=== PATIENT | male | born 1950 | race Caucasian/White ===

== ENCOUNTER 2018-03-01 19:30 | Observation (INO) | payer MEDICARE, BC, SELFPAY ==
[2018-03-01 19:31] VITALS: PULSE 126; RESP 18; TEMP 36.7; O2SAT 96; BMI 21.4
--- NOTE | 2018-03-01 19:53 | EKG12_ITS ---
Test Reason : ABD PAIN Blood Pressure : / mmHG Vent. Rate : 119 BPM Atrial Rate : 119 BPM P-R Int : 136 ms QRS Dur : 068 ms QT Int : 314 ms P-R-T Axes : 071 115 062 degrees QTc Int : 441 ms Sinus tachycardia with occasional Premature ventricular complexes Right axis deviation Low voltage QRS Septal infarct , age undetermined Abnormal ECG Confirmed by THAIS PEREZ ([id number]), editorial project manager AMELIE JULIAN ([id number]) on 03/04/2018 1:00:38 PM Referred By: KOSTAS Confirmed By:THAIS PEREZ
--- NOTE | 2018-03-01 19:53 | CT_ITS ---
STUDY: CT ABDOMEN AND PELVIS WITH CONTRAST REASON FOR EXAM: Male, 67 years old. Abdominal pain RADIATION DOSAGE (If Supplied By Facility): CTDIvol = ( 13.03 ) mGy, DLP = ( 499.37 ) mGycm TECHNIQUE: Transaxial images were obtained from the dome of the diaphragm to the symphysis pubis without oral contrast. 100ML ml of Isovue 300 contrast was administered. Sagittal and coronal images were reconstructed. Individualized dose optimization techniques were used for this CT. COMPARISON: None. FINDINGS: There are subcentimeter nodular densities within the right lung base. Pericardial effusion. There is retrocrural adenopathy. Enlarged liver with innumerable hepatic lesions compatible with metastasis. Mild wall thickening of the gallbladder with pericholecystic fluid. No significant dilatation of extrahepatic biliary system. Granulomatous calcifications in the spleen. There is a 1.6 cm in nodule posterior to the spleen. Normal pancreas. Normal bilateral adrenal glands. Normal right kidney. Normal left kidney. Normal visualized stomach. Normal small intestine. Normal colon. The appendix is not visualized. Normal abdominal aorta. Normal inferior vena cava. Normal retroperitoneum. Normal urinary bladder. There is mild pelvic free fluid. Normal abdominal wall. Mild degenerative vertebral changes. CT/Abdomen/Pelvis WITH Contrast IMPRESSION: There are small subcentimeter right pulmonary nodular densities. Pericardial effusion. Hepatomegaly with innumerable metastatic hepatic lesions. Mild pelvic free fluid. Retrocrural adenopathy. Nodule posterior to the spleen may be related to additional enlarged node. Electronically Signed: Sid Oneil DO at 22:31 EST Tel [phone], Service support ,
[2018-03-01 19:58] VITALS: BP 122/88; PULSE 120; RESP 16; O2SAT 96
[2018-03-01] MEDS: Morphine 4 MG/ML Syringe IV (20:25)
[2018-03-01] MEDS: 0.9% Normal Saline 1,000 ML 150 ML IV (20:25)
[2018-03-01] MEDS: Ondansetron 4 MG/2 ML Vial IV (20:25)
[2018-03-01 20:39] LABS: Absolute Lymphocyte Count 0.65 X10^3/ul (0.83-4.51); Absolute Neutrophil Count 6.3 X10^3/uL (2.0-7.7); Basophil# 0.03 X10^3/uL; Basophil% 0.4 % (0-1); Eosinophil# 0.02 X10^3/uL; Eosinophils% 0.3 % (0-5); Hematocrit 43.8 % (40-54); Hemoglobin 14.9 g/dl (13.0-16.5); Lymphocyte # 0.65 X10^3/ul (4.0); Lymphocyte % 8.4 % (19-41); Mean Corpuscular Hgb 32.7 pg (27.0-32.0); Mean Corpuscular Volume 96.3 fL (80-94); Mean Platelet Vol. 11.5 fl (6.2-12.0); Monocyte# 0.76 X10^3/uL; Monocyte% 9.8 % (0-10); Neutrophil # 6.27 X10^3/uL (2.7-7.7); Neutrophil % 80.8 % (47-70); Platelet Count 303 K/mm3 (150-450); RBC Distribution Width CV 15.8 % (11.6-14.6); RBC Distribution Width SD 54.5 fl (35.1-43.9); Red Blood Count 4.55 M/mm3 (4.6-6.2); White Blood Count 7.8 K/mm3 (4.4-11.0)
[2018-03-01 20:41] LABS: POSITIVE COUNT NO; POSITIVE DIFFERENTIAL NO; POSITIVE MORPHOLOGY NO
--- NOTE | 2018-03-01 20:43 | RAD_ITS ---
STUDY: X-RAY CHEST REASON FOR EXAM: Male, 67 years old. Cough TECHNIQUE: Frontal views COMPARISON: None. FINDINGS: The lungs are expanded. There is a faint right pulmonary 1.6 cm nodular opacity. Possible right perihilar and right basilar infiltrates. Normal size heart. Normal mediastinum. There is right hilar prominence. Normal visualized pulmonary arteries. Normal visualized aortic arch and descending thoracic aorta. Normal visualized thoracic spine. Mild degenerative changes of the shoulders. There is no demonstrated abnormality of the visualized soft tissue structures of the upper abdomen. RAD/Chest 1 View (Portable) IMPRESSION: Right upper lung nodular density and right hilar prominence. Correlation with CT is recommended. Focal right perihilar and infrahilar infiltrates. Electronically Signed: Sid Oneil DO at 21:26 EST Tel [phone], Service support ,
[2018-03-01 20:53] LABS: AST(SGOT) 90 U/L (15-37); Alanine Aminotransfer ALT/SGPT 72 U/L (16-61); Albumin, Serum 3.1 g/dL (3.2-5.0); Alkaline Phosphatase 315 U/L (45-117); Anion Gap 12 (5-15); BUN 18 mg/dL (7-18); BUN/Creat Ratio 18.3 RATIO (10-20); Bilirubin, Direct 2.58 mg/dL (0.00-0.30); Calcium,Total 9.2 mg/dL (8.5-10.1); Chloride 102 mmol/L (98-107); Creatinine, Serum 0.99 mg/dL (0.70-1.30); EST Glomerular Filtration Rate 81 mL/min (>60); Est Glom Filt Rate - Afr Amer 98 mL/min (>60); Estimated Creatinine Clearance 77.34 ml/min; Globulin 4.3 g/dL (2.2-4.2); Glucose 97 mg/dL (74-106); Lipase 452 U/L (73-393); Potassium 3.9 mmol/L (3.5-5.1); Protein, Total 7.4 g/dL (6.4-8.2); Sodium Level 136 mmol/L (136-145)
--- NOTE | 2018-03-01 20:53 | ED.DCSUM_ITS ---
- ER Visit Summary Date of Service: 03/01/18 Chief Complaint: Abdominal pain History of Present Illness: The patient is a 67 M reports intermittent bronchitis symptoms of fever over the past 3 weeks. He states he coughed hard and noted a bulge in his upper abdomen approximately 3 weeks ago. His daughter visited him tonight and encouraged him to come to the emergency room. He does report having some vomiting this morning. Physical Examination: Heart rate is 126, otherwise vitals normal. Patient sitting upright in bed. He is in no acute distress. Heart tachycardic and regular. Lung sounds are clear. Abdomen is soft with firmness in the upper abdomen and what feels like an enl arged liver. Active bowel sounds are noted. Test Results: Portable chest x-ray shows right upper lobe nodule and right hilar prominence. Focal right perihilar and infrahilar infiltrates noted. EKG is sinus tach at 119 with occasional PVCs. No acute ST change. CBC reveals normal white count but left shift is noted. Chemistry studies reveal creatinine 1.52. LFTs significant for total bili of 3.3, direct bili 2.58, alk phos 315. ALT is 72 and AST is 90. Lipase is 452. Lactate is elevated at 3.4. CT scan of the abdomen and pelvis shows small subcentimeter right pulmonary nodular densities. Pericardial effusion is noted. Hepatomegaly with innumerable metastatic hepatic lesions are noted. Mild pelvic free fluid is noted. Mild gallbladder wall thickening with pericholecystic fluid is appreciated. Right upper quadrant ultrasound shows no evidence of gallstones. Gallbladder sanchez measuring 3 mm. Pericholecystic fluid is noted. There is a negative sonographic Yang sign. Emergency Department Course and Treatment: Patient was given morphine Zofran and fluids. Upon return of x-ray, Levaquin is ordered IV. Blood cultures have been added. Test results are discussed with , daughter, and patient at bedside. I have expressed to him that I do believe he has cancer with metastatic lesions to his liver. At this time I think his best course of action is admission for treatment of his pneumonia and attempts to clear his lactic acidosis. We are currently heading into a weekend with holiday dates on Sunday and Sunday. I do not feel that anyone will be eager to get biopsies done until at least Sunday. This would be the same treatment if he is kept here versus transfer to a larger facility. Hospitalist has been contacted. Treatment Plan: [] Disposition: Admit Impression: 1. Right lower lobe infiltrate 2. Lung nodules with liver metastases 3. Elevated lactate 4. Elevated LFTs This note was generated with [employer] dictation software. It may contain incorrect words, spelling, and punctuation that were not noted in review of the chart prior to signing ED Disposition - Plan for ED Patient: Chief Complaint: Abd Pain Referrals: Care Physician,No Primary [Primary Care Provider] -
[2018-03-01 21:12] LABS: Lactic Acid 3.4 mmol/L (0.4-2.0)
--- NOTE | 2018-03-01 21:12 | ED.RN ---
LACTIC ACID OF 3.[address]KLINE[address] GALO VERBALIZED UNDERSTANDING
[2018-03-01] MEDS: levoFLOXacin IV 750 MG/150 ML BAG 100 MG IV (21:51)
[2018-03-01 22:00] VITALS: BP 127/89; PULSE 121; RESP 16; TEMP 36.7; O2SAT 97
[2018-03-01 22:02] VITALS: BP 127/89; PULSE 110; RESP 18; TEMP 36.7; O2SAT 94
--- NOTE | 2018-03-01 22:53 | US_ITS ---
STUDY: ABDOMINAL ULTRASOUND - RIGHT UPPER QUADRANT REASON FOR VISIT: Male, 67 years old. Right upper quadrant pain TECHNIQUE: Ultrasound evaluation of the right upper quadrant was performed with real-time and static hebert-scale imaging. TECHNICAL QUALITY: Adequate. COMPARISON: None. FINDINGS: Liver: The liver measures 21 cm. Multiple hypoechoic lesions are seen in the liver are consistent with metastatic lesions the largest measures approximately 4 cm. The bile ducts are within normal limits. There is hepatic color flow. The direction of portal flow is hepatopetal. There is no demonstrated mass lesion. Gallbladder: Normal distended gallbladder. The gallbladder wall measures 3 mm. There is a negative sonographic Yang's sign. There is pericholecystic fluid. There are no gallstones. Common Bile Duct (C.B.D.): The common bile duct measures 2 mm. Pancreas: Normal size of the head, body and tail of the pancreas. There is normal echogenicity of the pancreas. There is no demonstrated pancreatic mass or cyst. Right Kidney: Normal size of the right kidney. The right kidney measures 11.5 x 5 x 4 cm. Normal renal cortex. The right cortex measures 1.2 cm. There is no demonstrated renal mass or cyst. There is no right hydronephrosis. US/Gallbladder IMPRESSION: Multiple metastatic lesions in the liver Electronically Signed: Janee Srivastava MD at 23:59 EST Tel , Service support ,
[2018-03-01] MEDS: 0.9% Normal Saline 1,000 ML 999 ML IV ×2 (22:55→23:00)
[2018-03-02] VITALS (11 sets, daily range): BP systolic 129–146; BP diastolic 82–97; PULSE 101–115; RESP 16–24; TEMP 36.6–36.9; O2SAT 94–96; BMI 21.4; BMI 21.5
--- NOTE | 2018-03-02 00:23 | HP.PCM_ITS ---
History of Present Illness Date of Admission: 03/02/18 Chief Complaint: right abdominal pain The patient is a 67 year old M with no significant PMH. He was admitted with a complaint of right upper abdominal pain for the past few days. He has been coughing for the past month, and thought it was due to bronchitis. Whilst coughing, he noticed a bulge in his right upper abdomen, which he thought may be a hernia. He however had persistent right upper abdominal pain in the bulging and so his and daughter convinced him to come to the hospital today. He did not have any fever or chills that his cough was productive of scanty yellowish sputum. had noticed yellowing of his eyes and said he just noti emigdio it today and his urine has been more concentrated than usual. He denied any chest pain, any palpitations, any diarrhea vomiting. Patient has an extensive history of smoking is to smoke about three quarters of a pack daily for his entire life according to him and only quit 3 weeks ago because of the chronic cough. He is also lost about 15-20 pounds unintentionally over the past month. Vitals in the ED showed tachypnea and tachycardia. CBC showed no leukocytosis or anemia and CMP showed lactic acid of 3.4 with total bilirubin of 3.3, direct bilirubin of 2.58 and elevated AST, ALT and ALP. Lipase was 452. CT of the abdomen and pelvis showed enlarged liver with innumerable hepatic lesions consistent with metastasis as well as mild wall thickening of the gallbladder with pericholecystic fluid and a 1.6 cm nodule posterior to the spleen. There are also subcentimeter nodular densities within the right lung base as well as pericardial effusion and a retrocrural adenopathy. Chest x-ray showed right upper lung nodular density and right hilar prominence and focal right perihilar and infrahilar infiltrates. He is been admitted to be managed for newly diagnosed malignancy with liver metastasis with primary likely pain in the lung. Past Medical History Allergies Penicillins [PCN] Adverse Reaction (Verified 03/01/18 19:33) Other Home Medications: Ambulatory Orders Medication Instructions Recorded NK 03/01/18 Surgical History: - - hand surgery Psychiatric History: No pertinent psych hx Lives: With Family Smoking Status: Former smoker - quit 3 weeks ago; smoked 3/4 pack daily for majority of his life Tobacco Use: Cigarettes Alcohol: None Drugs: None - *Family History Maternal History Items: Cancer, Heart Disease, Hypertension Paternal History Items: No pertinent history Review of Systems Constitutional: Reports: Anorexia, Malaise, Weakness, Weight Change - lost 15-20 pounds, Fatigue. Denies: Chills, Fever HEENT: Reports: Difficulty Hearing Cardiovascular: Denies: Chest Pain, Chest Pressure, Chest Tightness, Light Headedness, Orthopnea, Palpitations, Paroxysmal Noc. Dyspnea, Syncope Respiratory: Reports: Cough, Sputum production. Denies: Pleuritic Pain, Shortness of Breath, Shortness of breath at rest, Shortness of breath upon exertion, Wheezing Gastrointestinal: Reports: Abdominal Pain. Denies: Constipation, Diarrhea, Dyspepsia, Hematemesis, Hematochezia, Nausea, Vomiting Genitourinary: Denies: Dysuria Musculoskeletal: Denies: Joint Pain, Joint Tenderness Skin: Denies: Rash, Wounds Neurological: Denies: Numbness, Tingling, Focal weakness Psychiatric: Denies: Anxiety, Depression, Homicidal Ideations, Suicidal Ideations Hematologic/ Lymphatic: Denies: Easy Bruising, Easy Bleeding VTE Information - Inpt Only VTE Present on Admission: No VTE Pharm Prophylaxis ordered?: Yes - Physical Exam General: Alert, Oriented x3, Cooperative, No apparent distress, - - looks emaciated HEENT: Atraumatic, PERRLA, EOMI, Normocephalic, - - jaundiced sclera Oral: Dry Mucosa Neck: Supple, No JVD, Negative Carotid Bruits Lungs: Tachypneic, - - decreased breath sounds in right mid and lower lung mosquera, with coarse crackles auscultated Cardiovascular: Regular Rhythm, Normal S1, Normal S2, No murmurs, Tachycardic Abdomen: Bowel Sounds Present, Soft, - - right hypochondrial tenderness, with guarding. Palpable tender hepatomegaly, with liver edge ~ 10cm below costal margin. No palpable splenomegaly Extremities: No clubbing, No cyanosis, No edema, Capillary Refill Less than 3 Seconds Skin: No rashes, No breakdown Musculoskeletal: No Tenderness to Palpation of Joints or Extremities Lymphatic: No Cervical, Supraclavicular, or Inguinal Adenopathy Neurological: Cranial nerves II-XII grossly intact Psych/Mental Status: Anxious, Alert and oriented to time, place, person, mood and affect Vital Signs Temp Pulse Resp BP Pulse Ox 98.2 F 101 H 24 H 129/92 H 96 03/02/18 00:05 03/02/18 00:05 03/02/18 00:05 03/02/18 00:05 03/02/18 00:05 Oxygen Delivery Method Room Air Weight: 162 lb 0.636 oz Body Mass Index (BMI) 21.4 Laboratory Tests Past 24 Hrs 03/01/18 03/01/18 03/01/18 20:30 20:30 20:30 WBC 7.8 RBC 4.55 L Hgb 14.9 Hct 43.8 MCV 96.3 H MCH 32.7 H MCHC 34.0 RDW 15.8 H RDW Differential 54.5 H Plt Count 303 MPV 11.5 Immature Gran % (Auto) 0.300 Neut % (Auto) 80.8 H Lymph % (Auto) 8.4 L Harnett % (Auto) 9.8 Eos % (Auto) 0.3 Baso % (Auto) 0.4 Absolute Neuts (auto) 6.3 Absolute Lymphs (auto) 0.65 L Total Counted Not Reportable Sodium 136 Potassium 3.9 Chloride 102 Carbon Dioxide 22.0 Anion Gap 12 BUN 18 Creatinine 0.99 Estim Creat Clear Calc 77.34 Est GFR (MDRD) Af Amer 98 Est GFR (MDRD) Non-Af 81 BUN/Creatinine Ratio 18.3 Glucose 97 Lactic Acid 3.4 H Calcium 9.2 Total Bilirubin 3.30 H Direct Bilirubin 2.58 H AST 90 H ALT 72 H Alkaline Phosphatase 315 H Total Protein 7.4 Albumin 3.1 L Globulin 4.3 H Lipase 452 H Diagnostic Data Abdomen/Pelvis CT 03/01/18 19:53 IMPRESSION: There are small subcentimeter right pulmonary nodular densities. Pericardial effusion. Hepatomegaly with innumerable metastatic hepatic lesions. Mild pelvic free fluid. Retrocrural adenopathy. Nodule posterior to the spleen may be related to additional enlarged node. Electronically Signed: Sid Oneil DO at 22:31 EST Tel [phone], Service support , Chest X-Ray 03/01/18 20:43 IMPRESSION: Right upper lung nodular density and right hilar prominence. Correlation with CT is recommended. Focal right perihilar and infrahilar infiltrates. Electronically Signed: Sid Oneil DO at 21:26 EST Tel [phone], Service support , Gallbladder Ultrasound 03/01/18 22:53 IMPRESSION: Multiple metastatic lesions in the liver Electronically Signed: Janee Srivastava MD at 23:59 EST Tel , Service support , Assessment/Plan [age]-year-old male presenting with a complaint of right upper quadrant pain and bulging of a few days and a cough of one-month duration. 1. Malignancy with hepatic metastases, primary likely lung * has associated jaundice and palpable tender hepatomegaly * total bilirubin elevated at 3.3, with direct bilirubin of 2.58; AST/ALT/ALT is 90/72/315 * lactic acid elevated at 3.4 * abdominopelvic CT showed enlarged liver with numerous metastatic lesions * CXR; right upper lung nodular density and right hilar prominence, as well as focal ribght peihilar and infrahilar infiltrates * admit to to PCU with telemetry * hydrate with IV normal saline at 150cc/hr * order chest CT: showed multiple pleural nodules in in lower part of right hemithorax, likely metastatic lesions; right hilar mass measyring ~ 5.5cm in diameter, consistent with neoplastic process * consult pulmonology and oncology * patient and family counselled about diagnosis, and need for official diagnosis via biopsy before treatment can commence * will hold off on antibiotics for now as I am not convinced he has pneumonia. All his symptoms can be explained by malignancy. * 2. Lactic acidosis: * Lactic acid is 3.4. * This can be due to liver lesions or decreased intake as patient is very dry and has not been eating well. * Will hydrate with IV fluids and repeat. * 3. Nicotine dependence: quit 3 weeks ago o/a of chronic cough. Counselled to continue abstaining from nicotine DVT prophylaxis: lovenox Code Visit Inpatient E&M: 95239 Init Hosp L3
--- NOTE | 2018-03-02 00:23 | CT_ITS ---
STUDY: CT CHEST WITHOUT CONTRAST REASON FOR EXAM: Male, 67 years old. Lung nodule RADIATION DOSAGE (If Supplied By Facility): CTDIvol = ( 9.37 ) mGy, DLP = ( 358.36 ) mGycm TECHNIQUE: Transaxial imaging was performed without the administration of intravenous contrast material. Individualized dose optimization techniques were used for this CT. COMPARISON: None. FINDINGS: There is hyperinflation of the lungs consistent with chronic obstructive lung disease (COPD). Subpleural reticular interstitial opacities are seen in both lungs more prominent in lung bases suggesting chronic interstitial lung disease. Mild emphysema is noted in the upper lobes. Multiple pleural nodules are seen in the lower part of the right hemithorax most likely represent metastatic lesions the largest measures approximately 2.8 x 1.2 cm. Normal heart and pericardium. Normal mediastinum. There is right hilar mass measures approximately 5.5 cm in diameter consistent with a neoplastic process. Normal unenhanced pulmonary arteries. There is atherosclerotic calcification of the aortic arch with tortuosity and elongation of the aortic arch and descending thoracic aorta. There are multi-level degenerative changes of the thoracic spine. Innumerable metastatic lesions are seen in the liver largest measures approximately [address]/Chest without Contrast IMPRESSION: Multiple pleural nodules are seen in the lower part of the right hemithorax most likely represent metastatic lesions the largest measures approximately 2.8 x 1.2 cm. There is right hilar mass measures approximately 5.5 cm in diameter consistent with a neoplastic process. Innumerable metastatic lesions are seen in the liver, the largest measures approximately 8 cm in diameter. Electronically Signed: Janee Srivastava MD at 1:59 EST Tel , Service support ,
[2018-03-02 00:33] LABS: Reflex Lactate? Y
[2018-03-02 02:56] LABS: Lactic Acid 2.1 mmol/L (0.4-2.0)
[2018-03-02 05:48] LABS: Absolute Lymphocyte Count 0.54 X10^3/ul (0.83-4.51); Absolute Neutrophil Count 5.5 X10^3/uL (2.0-7.7); Basophil# 0.02 X10^3/uL; Basophil% 0.3 % (0-1); Differential Indicated SCAN CRITERIA MET; Eosinophil# 0.08 X10^3/uL; Eosinophils% 1.2 % (0-5); Hematocrit 38.9 % (40-54); Hemoglobin 13.1 g/dl (13.0-16.5); Lymphocyte # 0.54 X10^3/ul (4.0); Lymphocyte % 7.8 % (19-41); Mean Corp Hgb Conc 33.7 g/gl (32-36); Mean Corpuscular Hgb 32.6 pg (27.0-32.0); Mean Corpuscular Volume 96.8 fL (80-94); Mean Platelet Vol. 11.3 fl (6.2-12.0); Monocyte# 0.73 X10^3/uL; Monocyte% 10.6 % (0-10); Neutrophil # 5.49 X10^3/uL (2.7-7.7); Neutrophil % 79.8 % (47-70); POSITIVE COUNT NO; POSITIVE DIFFERENTIAL YES; POSITIVE MORPHOLOGY NO; Platelet Count 249 K/mm3 (150-450); RBC Distribution Width CV 15.7 % (11.6-14.6); RBC Distribution Width SD 53.9 fl (35.1-43.9); Red Blood Count 4.02 M/mm3 (4.6-6.2); White Blood Count 6.9 K/mm3 (4.4-11.0)
[2018-03-02 06:11] LABS: ALB/GLOB Ratio 0.7 RATIO (0.9-2.4); AST(SGOT) 74 U/L (15-37); Alanine Aminotransfer ALT/SGPT 61 U/L (16-61); Albumin, Serum 2.6 g/dL (3.2-5.0); Alkaline Phosphatase 259 U/L (45-117); Anion Gap 10 (5-15); BUN 15 mg/dL (7-18); BUN/Creat Ratio 17.4 RATIO (10-20); Calcium,Total 8.4 mg/dL (8.5-10.1); Chloride 105 mmol/L (98-107); Creatinine, Serum 0.86 mg/dL (0.70-1.30); EST Glomerular Filtration Rate 94 mL/min (>60); Est Glom Filt Rate - Afr Amer 114 mL/min (>60); Estimated Creatinine Clearance 86.97 ml/min; Globulin 3.6 g/dL (2.2-4.2); Glucose 81 mg/dL (74-106); Potassium 4.1 mmol/L (3.5-5.1); Protein, Total 6.2 g/dL (6.4-8.2); Sodium Level 138 mmol/L (136-145)
[2018-03-02 06:13] LABS: Lactic Acid 1.9 mmol/L (0.4-2.0)
--- NOTE | 2018-03-02 06:15 | PCM.CONS.GEN ---
Reason for Consult Date of Consultation: 03/02/18 Reason for Consultation: Lung cancer with liver metastases History of Present Illness: The patient is a 67-year-old male, with a history as outlined below, who presented to the emergency department on March 01 with complaints of a cough with sputum production along with abdominal pain. The patient has a long-standing tobacco dependence history, which includes 1 pack/day x 40 years. The patient reports that he recently quit smoking completely 1 month ago. Since that time, he has been experiencing a cough which has been intermittently productive of sputum. With coughing, he began to notice a bulge in his abdomen which concerned him. However, he strongly suspected that he had a hernia. In addition to the aforementioned, the patient reports that over the last month his appetite has decreased significantly and he has lost approximately 15 pounds. The patient has never previously been evaluated by a pulmonary provider, nor has he undergone pulmonary function testing previously. He does not currently utilize any inhalers at his baseline. He denies the presence of hemoptysis. On presentation to the emergency department, the patient was noted to be afebrile and hemodynamically stable. He was maintaining appropriate oxygen saturations on room air. Laboratory evaluation revealed no evidence of a leukocytosis. Chemistry profile was largely unremarkable. Serum lactate was mildly elevated to 3.4. Total bilirubin was increased to 3.3 with an elevated AST, ALT and alkaline phosphatase level. Lipase was increased to 452. A CT abdomen/pelvis was obtained and revealed an enlarged liver with numerous hepatic lesions concerning for metastatic disease. A follow-up gallbladder ultrasound confirmed these findings. A CT chest without contrast was also obtained and revealed hyperinflated lung mosquera, significant emphysematous changes bilaterally, several pleural based densities bilaterally (most pronounced in the right hemithorax), bilateral lower lobe subpleural reticular changes and groundglass changes concerning for fibrosis along with a right perihilar mass. The patient did receive supplemental IV fluids in the ED along with Levaquin. He was subsequently admitted to the progressive care unit for ongoing management. Past Medical History Allergies Penicillins [PCN] Adverse Reaction (Verified 03/01/18 19:33) Other Home Medications: Ambulatory Orders Medication Instructions Recorded NK 03/01/18 Surgical History: - - hand surgery Psychiatric History: No pertinent psych hx Lives: With Family Smoking Status: Former smoker Tobacco Use: Cigarettes Alcohol: None Drugs: None - *Family History Maternal History Items: Cancer, Heart Disease, Hypertension Paternal History Items: No pertinent history Review of Systems Constitutional: Reports: Weight Change, Fatigue Eyes: Denies: Blurred vision, Double vision HEENT: Denies: Head Aches, Sinus Congestion, Sinus Drainage Cardiovascular: Denies: Chest Pain, Palpitations Respiratory: Reports: Cough, Sputum production. Denies: Hemoptysis Gastrointestinal: Reports: Abdominal Pain. Denies: Diarrhea, Nausea, Vomiting Genitourinary: Denies: Dysuria Musculoskeletal: Denies: Joint Pain, Joint Tenderness Skin: Denies: Rash, Wounds Neurological: Denies: Numbness, Tingling, Focal weakness Psychiatric: Denies: Anxiety, Depression, Homicidal Ideations, Suicidal Ideations Hematologic/ Lymphatic: Denies: Easy Bruising, Easy Bleeding Objective: The patient's most recent lab work, culture data and imaging studies have all been personally reviewed. - Physical Exam General: Alert, Cooperative, No apparent distress HEENT: Atraumatic, PERRLA, Normocephalic Oral: No Gingival or Mucosal Lesions/ Ulcerations Neck: Supple, No Nodes, Trachea Midline Lungs: No rhonchi, No wheeze, Diminished, Rales Cardiovascular: Normal S1, Normal S2, No murmurs, Tachycardic Abdomen: Bowel Sounds Present, Soft, Non Tender Extremities: No clubbing, No cyanosis, No edema Skin: No breakdown Musculoskeletal: No Tenderness to Palpation of Joints or Extremities, Cachexia, Muscle Wasting Lymphatic: No Cervical, Supraclavicular, or Inguinal Adenopathy Neurological: Cranial nerves II-XII grossly intact, Neuro grossly intact Psych/Mental Status: Alert and oriented to time, place, person, mood and affect Vital Signs Temp Pulse Resp BP Pulse Ox 36.8 C 109 H 18 131/83 H 94 03/02/18 06:05 03/02/18 06:05 03/02/18 06:05 03/02/18 06:05 03/02/18 06:05 Oxygen Delivery Method Room Air Weight: 158 lb 4.67 oz Body Mass Index (BMI) 21.4 Intake and Output for Last 24 Hours 02/28/18 03/01/18 03/02/18 23:59 23:59 23:59 Intake Total 583 / 583 Balance 583 / 583 Laboratory Tests Past 24 Hrs 1203/01/18 03/01/18 20:30 20:30 20:30 WBC 7.8 RBC 4.55 L Hgb 14.9 Hct 43.8 MCV 96.3 H MCH 32.7 H MCHC 34.0 RDW 15.8 H RDW Differential 54.5 H Plt Count 303 MPV 11.5 Immature Gran % (Auto) 0.300 Neut % (Auto) 80.8 H Lymph % (Auto) 8.4 L [place] % (Auto) 9.8 Eos % (Auto) 0.3 Baso % (Auto) 0.4 Absolute Neuts (auto) 6.3 Absolute Lymphs (auto) 0.65 L Total Counted Not Reportable Sodium 136 Potassium 3.9 Chloride 102 Carbon Dioxide 22.0 Anion Gap 12 BUN 18 Creatinine 0.99 Estim Creat Clear Calc 77.34 Est GFR (MDRD) Af Amer 98 Est GFR (MDRD) Non-Af 81 BUN/Creatinine Ratio 18.3 Glucose 97 Lactic Acid 3.4 H Calcium 9.2 Total Bilirubin 3.30 H Direct Bilirubin 2.58 H AST 90 H ALT 72 H Alkaline Phosphatase 315 H Total Protein 7.4 Albumin 3.1 L Globulin 4.3 H Albumin/Globulin Ratio Lipase 452 H 03/02/18 03/02/18 03/02/18 02:25 05:23 05:23 WBC 6.9 RBC 4.02 L Hgb 13.1 Hct 38.9 L MCV 96.8 H MCH 32.6 H MCHC 33.7 RDW 15.7 H RDW Differential 53.9 H Plt Count 249 MPV 11.3 Immature Gran % (Auto) 0.300 Neut % (Auto) 79.8 H Lymph % (Auto) 7.8 L [place] % (Auto) 10.6 H Eos % (Auto) 1.2 Baso % (Auto) 0.3 Absolute Neuts (auto) 5.5 Absolute Lymphs (auto) 0.54 L Total Counted Not Reportable Sodium 138 Potassium 4.1 Chloride 105 Carbon Dioxide 23.0 Anion Gap 10 BUN 15 Creatinine 0.86 Estim Creat Clear Calc 86.97 Est GFR (MDRD) Af Amer 114 Est GFR (MDRD) Non-Af 94 BUN/Creatinine Ratio 17.4 Glucose 81 Lactic Acid 2.1 H Calcium 8.4 L Total Bilirubin 3.20 H Direct Bilirubin AST 74 H ALT 61 Alkaline Phosphatase 259 H Total Protein 6.2 L Albumin 2.6 L Globulin 3.6 Albumin/Globulin Ratio 0.7 L Lipase 03/02/18 05:23 WBC RBC Hgb Hct MCV MCH MCHC RDW RDW Differential Plt Count MPV Immature Gran % (Auto) Neut % (Auto) Lymph % (Auto) [place] % (Auto) Eos % (Auto) Baso % (Auto) Absolute Neuts (auto) Absolute Lymphs (auto) Total Counted Sodium Potassium Chloride Carbon Dioxide Anion Gap BUN Creatinine Estim Creat Clear Calc Est GFR (MDRD) Af Amer Est GFR (MDRD) Non-Af BUN/Creatinine Ratio Glucose Lactic Acid 1.9 Calcium Total Bilirubin Direct Bilirubin AST ALT Alkaline Phosphatase Total Protein Albumin Globulin Albumin/Globulin Ratio Lipase Clinical Impression(s) from Imaging Studies Abdomen/Pelvis CT 03/01/18 19:53 IMPRESSION: There are small subcentimeter right pulmonary nodular densities. Pericardial effusion. Hepatomegaly with innumerable metastatic hepatic lesions. Mild pelvic free fluid. Retrocrural adenopathy. Nodule posterior to the spleen may be related to additional enlarged node. Electronically Signed: Sid Oneil DO at 22:31 EST Tel [phone], Service support , Chest X-Ray 03/01/18 20:43 IMPRESSION: Right upper lung nodular density and right hilar prominence. Correlation with CT is recommended. Focal right perihilar and infrahilar infiltrates. Electronically Signed: Sid Oneil DO at 21:26 EST Tel [phone], Service support , Gallbladder Ultrasound 03/01/18 22:53 IMPRESSION: Multiple metastatic lesions in the liver Electronically Signed: Janee Srivastava MD at 23:59 EST Tel , Service support , Chest CT 03/02/18 00:23 IMPRESSION: Multiple pleural nodules are seen in the lower part of the right hemithorax most likely represent metastatic lesions the largest measures approximately 2.8 x 1.2 cm. There is right hilar mass measures approximately 5.5 cm in diameter consistent with a neoplastic process. Innumerable metastatic lesions are seen in the liver, the largest measures approximately 8 cm in diameter. Electronically Signed: Janee Srivastava MD at 1:59 EST Tel , Service support , Assessment/Plan RECOMMENDATIONS: 1. Proceed with direct histopathologic confirmation of the patient's suspicious findings. We will need to confer with radiology and oncology about the most appropriate target for biopsy. Considerations include liver biopsy, right hilar mass/mediastinal sampling by EBUS and percutaneous CT-guided lung biopsy of the subpleural densities. Regardless, these procedures would need to be arranged on an outpatient basis. The patient can be scheduled for a follow-up office visit in the pulmonary medicine clinic next week, at which time, we can coordinate the timing of one of the aforementioned procedures. IMPRESSIONS: 1. Abnormal chest imaging The patient's presenting chest CT revealed findings consistent with the sequelae of long-term tobacco dependence, including emphysematous changes and interstitial changes noted in the lower lobes bilaterally. In addition, the patient was noted to have multiple pleural-based densities, most pronounced in the right hemithorax along with a sizable right perihilar mass. Given the patient's extensive smoking history and unintentional weight loss, this of course would be concerning for an underlying neoplastic process. I would recommend pursuing histopathologic confirmation of potential malignancy by direct tissue biopsy. Depending on the size of the liver lesions, the patient may be a candidate for a hepatic biopsy. Alternatively, direct tissue biopsy of the patient's right hilar mass by EBUS or percutaneous CT-guided lung biopsy of the pleural-based nodules could be considered. I recommended to the patient pursuing the biopsy procedure that would offer not only a tissue diagnosis but a stage as well. I would first consider obtaining a liver biopsy, if feasible followed by right hilar mass/mediastinal lymph node sampling by EBUS. These procedures would need to be coordinated and scheduled on an outpatient basis. I recommended that the patient call our office on Sunday, at which time, he will be given an office appointment for next week. At that appointment, will confer with radiology as to the appropriateness of a liver biopsy. If this is not feasible, he will be scheduled for an EBUS. The patient was given our contact information. 2. Long-standing tobacco dependence The patient has a [id number] smoking history and recently quit smoking 1 month ago. I do suspect that the patient's cough is likely chronic bronchitis, which is likely worsened in the setting of recently quitting smoking. The patient does not have a white count or fever and my suspicion for underlying pulmonary infectious process is low. I would recommend that the patient undergo formal pulmonary function testing. This can be arranged at his follow-up visit with us in the pulmonary medicine clinic. 3. Elevated transaminases Most likely secondary to potential underlying metastatic disease. This note was generated with [employer] dictation software. It may contain incorrect words, spelling, and punctuation that were not noted in checking the note before signing. Code Visit Inpatient E&M: 85032 Init Hosp L3
--- NOTE | 2018-03-02 06:23 | CON.PCM_ITS ---
Reason for Consult Date of Consultation: 03/02/18 Reason for Consultation: Lung cancer with liver metastases History of Present Illness: The patient is a 67-year-old male, with a history as outlined below, who presented to the emergency department on March 01 with complaints of a cough with sputum production along with abdominal pain. The patient has a long- standing tobacco dependence history, which includes 1 pack/day x 40 years. The patient reports that he recently quit smoking completely 1 month ago. Since that time, he has been experiencing a cough which has been intermittently productive of sputum. With coughing, he began to notice a bulge in his abdomen which concerned him. However, he strongly suspected that he had a hernia. In addition to the aforementioned, the patient reports that over the last month his appetite has decreased significantly and he has lost approximately 15 pounds. The patient has never previously been evaluated by a pulmonary provider, nor has he undergone pulmonary function testing previously. He does not currently utilize any inhalers at his baseline. He denies the presence of hemoptysis. On presentation to the emergency department, the patient was noted to be afebrile and hemodynamically stable. He was maintaining appropriate oxygen saturations on room air. Laboratory evaluation revealed no evidence of a leukocytosis. Chemistry profile was largely unremarkable. Serum lactate was mildly elevated to 3.4. Total bilirubin was increased to 3.3 with an elevated AST, ALT and alkaline phosphatase level. Lipase was increased to 452. A CT abdomen/pelvis was obtained and revealed an enlarged liver with numerous hepatic lesions concerning for metastatic disease. A follow-up gallbladder ultrasound confirmed these findings. A CT chest without contrast was also obtained and revealed hyperinflated lung mosquera, significant emphysematous changes bilaterally, several pleural based densities bilaterally (most pronounced in the right hemithorax), bilateral lower lobe subpleural reticular changes and groundglass changes concerning for fibrosis along with a right perihilar mass. The patient did receive supplemental IV fluids in the ED along with Levaquin. He was subsequently admitted to the progressive care unit for ongoing management. Past Medical History Allergies Penicillins [PCN] Adverse Reaction (Verified 03/01/18 19:33) Other Home Medications: Ambulatory Orders Medication Instructions Recorded NK 03/01/18 Surgical History: - - hand surgery Psychiatric History: No pertinent psych hx Lives: With Family Smoking Status: Former smoker Tobacco Use: Cigarettes Alcohol: None Drugs: None - *Family History Maternal History Items: Cancer, Heart Disease, Hypertension Paternal History Items: No pertinent history Review of Systems Constitutional: Reports: Weight Change, Fatigue Eyes: Denies: Blurred vision, Double vision HEENT: Denies: Head Aches, Sinus Congestion, Sinus Drainage Cardiovascular: Denies: Chest Pain, Palpitations Respiratory: Reports: Cough, Sputum production. Denies: Hemoptysis Gastrointestinal: Reports: Abdominal Pain. Denies: Diarrhea, Nausea, Vomiting Genitourinary: Denies: Dysuria Musculoskeletal: Denies: Joint Pain, Joint Tenderness Skin: Denies: Rash, Wounds Neurological: Denies: Numbness, Tingling, Focal weakness Psychiatric: Denies: Anxiety, Depression, Homicidal Ideations, Suicidal Ideations Hematologic/ Lymphatic: Denies: Easy Bruising, Easy Bleeding Objective: The patient's most recent lab work, culture data and imaging studies have all been personally reviewed. - Physical Exam General: Alert, Cooperative, No apparent distress HEENT: Atraumatic, PERRLA, Normocephalic Oral: No Gingival or Mucosal Lesions/ Ulcerations Neck: Supple, No Nodes, Trachea Midline Lungs: No rhonchi, No wheeze, Diminished, Rales Cardiovascular: Normal S1, Normal S2, No murmurs, Tachycardic Abdomen: Bowel Sounds Present, Soft, Non Tender Extremities: No clubbing, No cyanosis, No edema Skin: No breakdown Musculoskeletal: No Tenderness to Palpation of Joints or Extremities, Cachexia, Muscle Wasting Lymphatic: No Cervical, Supraclavicular, or Inguinal Adenopathy Neurological: Cranial nerves II-XII grossly intact, Neuro grossly intact Psych/Mental Status: Alert and oriented to time, place, person, mood and affect Vital Signs Temp Pulse Resp BP Pulse Ox 36.8 C 109 H 18 131/83 H 94 03/02/18 06:05 03/02/18 06:05 03/02/18 06:05 03/02/18 06:05 03/02/18 06:05 Oxygen Delivery Method Room Air Weight: 158 lb 4.67 oz Body Mass Index (BMI) 21.4 Intake and Output for Last 24 Hours 02/28/18 03/01/18 03/02/18 23:59 23:59 23:59 Intake Total 583 / 583 Balance 583 / 583 Laboratory Tests Past 24 Hrs 1203/01/18 03/01/18 20:30 20:30 20:30 WBC 7.8 RBC 4.55 L Hgb 14.9 Hct 43.8 MCV 96.3 H MCH 32.7 H MCHC 34.0 RDW 15.8 H RDW Differential 54.5 H Plt Count 303 MPV 11.5 Immature Gran % (Auto) 0.300 Neut % (Auto) 80.8 H Lymph % (Auto) 8.4 L [place] % (Auto) 9.8 Eos % (Auto) 0.3 Baso % (Auto) 0.4 Absolute Neuts (auto) 6.3 Absolute Lymphs (auto) 0.65 L Total Counted Not Reportable Sodium 136 Potassium 3.9 Chloride 102 Carbon Dioxide 22.0 Anion Gap 12 BUN 18 Creatinine 0.99 Estim Creat Clear Calc 77.34 Est GFR (MDRD) Af Amer 98 Est GFR (MDRD) Non-Af 81 BUN/Creatinine Ratio 18.3 Glucose 97 Lactic Acid 3.4 H Calcium 9.2 Total Bilirubin 3.30 H Direct Bilirubin 2.58 H AST 90 H ALT 72 H Alkaline Phosphatase 315 H Total Protein 7.4 Albumin 3.1 L Globulin 4.3 H Albumin/Globulin Ratio Lipase 452 H 03/02/18 03/02/18 03/02/18 02:25 05:23 05:23 WBC 6.9 RBC 4.02 L Hgb 13.1 Hct 38.9 L MCV 96.8 H MCH 32.6 H MCHC 33.7 RDW 15.7 H RDW Differential 53.9 H Plt Count 249 MPV 11.3 Immature Gran % (Auto) 0.300 Neut % (Auto) 79.8 H Lymph % (Auto) 7.8 L [place] % (Auto) 10.6 H Eos % (Auto) 1.2 Baso % (Auto) 0.3 Absolute Neuts (auto) 5.5 Absolute Lymphs (auto) 0.54 L Total Counted Not Reportable Sodium 138 Potassium 4.1 Chloride 105 Carbon Dioxide 23.0 Anion Gap 10 BUN 15 Creatinine 0.86 Estim Creat Clear Calc 86.97 Est GFR (MDRD) Af Amer 114 Est GFR (MDRD) Non-Af 94 BUN/Creatinine Ratio 17.4 Glucose 81 Lactic Acid 2.1 H Calcium 8.4 L Total Bilirubin 3.20 H Direct Bilirubin AST 74 H ALT 61 Alkaline Phosphatase 259 H Total Protein 6.2 L Albumin 2.6 L Globulin 3.6 Albumin/Globulin Ratio 0.7 L Lipase 03/02/18 05:23 WBC RBC Hgb Hct MCV MCH MCHC RDW RDW Differential Plt Count MPV Immature Gran % (Auto) Neut % (Auto) Lymph % (Auto) [place] % (Auto) Eos % (Auto) Baso % (Auto) Absolute Neuts (auto) Absolute Lymphs (auto) Total Counted Sodium Potassium Chloride Carbon Dioxide Anion Gap BUN Creatinine Estim Creat Clear Calc Est GFR (MDRD) Af Amer Est GFR (MDRD) Non-Af BUN/Creatinine Ratio Glucose Lactic Acid 1.9 Calcium Total Bilirubin Direct Bilirubin AST ALT Alkaline Phosphatase Total Protein Albumin Globulin Albumin/Globulin Ratio Lipase Clinical Impression(s) from Imaging Studies Abdomen/Pelvis CT 03/01/18 19:53 IMPRESSION: There are small subcentimeter right pulmonary nodular densities. Pericardial effusion. Hepatomegaly with innumerable metastatic hepatic lesions. Mild pelvic free fluid. Retrocrural adenopathy. Nodule posterior to the spleen may be related to additional enlarged node. Electronically Signed: Sid Oneil DO at 22:31 EST Tel [phone], Service support , Chest X-Ray 03/01/18 20:43 IMPRESSION: Right upper lung nodular density and right hilar prominence. Correlation with CT is recommended. Focal right perihilar and infrahilar infiltrates. Electronically Signed: Sid Oneil DO at 21:26 EST Tel [phone], Service support , Gallbladder Ultrasound 03/01/18 22:53 IMPRESSION: Multiple metastatic lesions in the liver Electronically Signed: Janee Srivastava MD at 23:59 EST Tel , Service support , Chest CT 03/02/18 00:23 IMPRESSION: Multiple pleural nodules are seen in the lower part of the right hemithorax most likely represent metastatic lesions the largest measures approximately 2.8 x 1.2 cm. There is right hilar mass measures approximately 5.5 cm in diameter consistent with a neoplastic process. Innumerable metastatic lesions are seen in the liver, the largest measures approximately 8 cm in diameter. Electronically Signed: Janee Srivastava MD at 1:59 EST Tel , Service support , Assessment/Plan RECOMMENDATIONS: 1. Proceed with direct histopathologic confirmation of the patient's suspicious findings. We will need to confer with radiology and oncology about the most appropriate target for biopsy. Considerations include liver biopsy, right hilar mass/mediastinal sampling by EBUS and percutaneous CT-guided lung biopsy of the subpleural densities. Regardless, these procedures would need to be arranged on an outpatient basis. The patient can be scheduled for a follow-up office visit in the pulmonary medicine clinic next week, at which time, we can c oordinate the timing of one of the aforementioned procedures. IMPRESSIONS: 1. Abnormal chest imaging The patient's presenting chest CT revealed findings consistent with the sequelae of long-term tobacco dependence, including emphysematous changes and interstitial changes noted in the lower lobes bilaterally. In addition, the patient was noted to have multiple pleural-based densities, most pronounced in the right hemithorax along with a sizable right perihilar mass. Given the patient's extensive smoking history and unintentional weight loss, this of course would be concerning for an underlying neoplastic process. I would recommend pursuing histopathologic confirmation of potential malignancy by direct tissue biopsy. Depending on the size of the liver lesions, the patient may be a candidate for a hepatic biopsy. Alternatively, direct tissue biopsy of the patient's right hilar mass by EBUS or percutaneous CT-guided lung biopsy of the pleural-based nodules could be considered. I recommended to the patient pursuing the biopsy procedure that would offer not only a tissue diagnosis but a stage as well. I would first consider obtaining a liver biopsy, if feasible followed by right hilar mass/mediastinal lymph node sampling by EBUS. These procedures would need to be coordinated and scheduled on an outpatient basis. I recommended that the patient call our office on Sunday, at which time, he will be given an office appointment for next week. At that appointment, will confer with radiology as to the appropriateness of a liver biopsy. If this is not feasible, he will be scheduled for an EBUS. The patient was given our contact information. 2. Long-standing tobacco dependence The patient has a [id number] smoking history and recently quit smoking 1 month ago. I do suspect that the patient's cough is likely chronic bronchitis, which is likely worsened in the setting of recently quitting smoking. The patient does not have a white count or fever and my suspicion for underlying pulmonary infectious process is low. I would recommend that the patient undergo formal pulmonary function testing. This can be arranged at his follow-up visit with us in the pulmonary medicine clinic. 3. Elevated transaminases Most likely secondary to potential underlying metastatic disease. This note was generated with [employer] dictation software. It may contain incorrect words, spelling, and punctuation that were not noted in checking the note before signing. Code Visit Inpatient E&M: 30757 Init Hosp L3
[2018-03-02] MEDS: 0.9% Normal Saline 1,000 ML 150 ML IV (08:13)
--- NOTE | 2018-03-02 08:52 | CON.PCM_ITS ---
Problem List (1) Lung mass Status: Acute (2) Mass of middle lobe of right lung Status: Acute (3) Liver masses Status: Acute - Consult Date of Consult: 03/02/18 - Reason for Consult HPI: The patient is a 67-year-old male who has an unremarkable past medical history, but received no routine primary care. He has a [id number] history of smoking. He presented to the emergency room last night at the urging of his family for several month history of progressive dyspnea, weight loss and right upper quadrant bulging. On presentation to the ER he was not in respiratory distress. Room air oxygenation's were normal. He was afebrile. Laboratories were significant for an increase in bilirubin as well as hepatocellular enzymes and alkaline phosphatase. CBC was unremarkable. CT A/P 03/01/2018: FINDINGS: There are subcentimeter nodular densities within the right lung base. Pericardial effusion. There is retrocrural adenopathy. Enlarged liver with innumerable hepatic lesions compatible with metastasis. Mild wall thickening of the gallbladder with pericholecystic fluid. No significant dilatation of extrahepatic biliary system. Granulomatous calcifications in the spleen. There is a 1.6 cm in nodule posterior to the spleen. Normal pancreas. Normal bilateral adrenal glands. Normal right kidney. Normal left kidney. Normal visualized stomach. Normal small intestine. Normal colon. The appendix is not visualized. Normal abdominal aorta. Normal inferior vena cava. Normal retroperitoneum. Normal urinary bladder. There is mild pelvic free fluid. Normal abdominal wall. Mild degenerative vertebral changes. IMPRESSION: There are small subcentimeter right pulmonary nodular densities. Pericardial effusion. Hepatomegaly with innumerable metastatic hepatic lesions. Mild pelvic free fluid. Retrocrural adenopathy. Nodule posterior to the spleen may be related to additional enlarged node. CT chest 03/01/2018: FINDINGS: There is hyperinflation of the lungs consistent with chronic obstructive lung disease (COPD). Subpleural reticular interstitial opacities are seen in both lungs more prominent in lung bases suggesting chronic interstitial lung disease. Mild emphysema is noted in the upper lobes. Multiple pleural nodules are seen in the lower part of the right hemithorax most likely represent metastatic lesions the largest measures approximately 2.8 x 1.2 cm. Normal heart and pericardium. Normal mediastinum. There is right hilar mass measures approximately 5.5 cm in diameter consistent with a neoplastic process. Normal unenhanced pulmonary arteries. There is atherosclerotic calcification of the aortic arch with tortuosity and elongation of the aortic arch and descending thoracic aorta. There are multi-level degenerative changes of the thoracic spine. Innumerable metastatic lesions are seen in the liver largest measures approximately 8 cm in diameter. IMPRESSION: Multiple pleural nodules are seen in the lower part of the right hemithorax most likely represent metastatic lesions the largest measures approximately 2.8 x 1.2 cm. There is right hilar mass measures approximately 5.5 cm in diameter consistent with a neoplastic process. Innumerable metastatic lesions are seen in the liver, the largest measures approximately 8 cm in diameter. Patient was admitted for further management. He says that over the last several months he has noticed some increase of dyspnea on exertion. For example went out hunting and hiking he notices that he gets a little more short winded with walking. He is also had some increase in cough and sputum production over the last several months but this really escalated in December when he had an episode of bronchitis. He was having significant paroxysms of coughing during 1 of those he coughed hard enough that he said he saw stars and noticed instantly some pain and bulging in his upper a bdomen. He thought this was a hernia. Over the ensuing weeks however he continued to have upper abdominal discomfort associated with loss of taste for foods and early satiety. He has had about a 30 pound weight loss. He denies wheezing and hemoptysis. He denies headache, visual changes, changes in coordination and focal motor symptoms. No symptoms of sensory neuropathy. Allergies Penicillins [PCN] Adverse Reaction (Verified 03/01/18 19:33) Other Current Medications Enoxaparin Sodium (Lovenox) 40 mg SC DAILY@1000 JEF Last Admin: 03/02/18 08:15 Dose: Not Given Sodium Chloride () 1,000 mls @ 150 mls/hr IV .[id number] [facility] Last Admin: 03/02/18 08:13 Dose: 150 mls/hr Magnesium Hydroxide (Milk Of Magnesia) 30 ml PO DAILY PRN PRN PRN Reason: Constipation Nutritional Formula (Lactose Free) (Ensure Enlive) 120 ml PO 4X/DAY [facility] Sodium Chloride () 5 - 15 ml IV UD PRN PRN Reason: SALINE FLUSH Problem List Lung mass (Acute) Mass of middle lobe of right lung (Acute) Liver masses (Acute) SOC: Quit smoking about a month ago. Previous 40-[id number]-[id number] history of smoking. He lives with his in [place]. 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 ROS: Constitutional: Denies episodes of fever and night sweats. Neuro: See above. HEENT: Had symptoms of URI last week that resolved. Resp: See above. CVS: Denies exertional chest pain, PND, orthopnea. Denies lower extremity edema. GI: Denies reflux, n/v, and change in bowel habits. No melena or hematochezia. : Denies dysuria, frequency and gross hematuria. Endo: Denies hot flashes. Heat and cold intolerance. Musculoskeletal: Denies bone, back, joint and muscular pain. Heme: Denies episodes of significant bleeding. Psych: Mood has been normal. PHYSICAL EXAM: Vitals: Vital Signs Temp 98.3 F 03/02/18 06:05 Pulse 110 H 03/02/18 07:00 Resp 18 03/02/18 06:05 BP 131/83 H 03/02/18 06:05 Pulse Ox 94 03/02/18 07:49 Intake & Output 02/28/18 03/01/18 03/02/18 23:59 23:59 23:59 Intake Total 583 / 583 Balance 583 / 583 Weight: 73.5 kg 71.8 kg Intake: IV fluid/meds 583 / 583 Other: Number of Voids 1 GENERAL: No acute distress. NECK: Supple. LYMPHATIC: No palpable peripheral adenopathy. RESPIRATORY: Inspiratory breath sounds are of diminished intensity in all mosquera--worse right upper lung field. Faint expiratory wheeze right lower lung field. CARDIOVASCULAR: Rhythm is regular. Normal intensity S1/S2. ABDOMEN: Tender hepatomegaly. Extremities: No edema. SKIN: No jaundice or rash. NEUROLOGIC: AAO x3; No focal motor weakness. MUSCULOSKELETAL: Mild generalized muscle wasting. Laboratory Results - last 24 hr 03/01/18 03/01/18 03/01/18 20:30 20:30 20:30 WBC 7.8 RBC 4.55 L Hgb 14.9 Hct 43.8 MCV 96.3 H MCH 32.7 H MCHC 34.0 RDW 15.8 H RDW Differential 54.5 H Plt Count 303 MPV 11.5 Immature Gran % (Auto) 0.300 Neut % (Auto) 80.8 H Lymph % (Auto) 8.4 L [place] % (Auto) 9.8 Eos % (Auto) 0.3 Baso % (Auto) 0.4 Absolute Neuts (auto) 6.3 Absolute Lymphs (auto) 0.65 L Total Counted Not Reportable Sodium 136 Potassium 3.9 Chloride 102 Carbon Dioxide 22.0 Anion Gap 12 BUN 18 Creatinine 0.99 Estim Creat Clear Calc 77.34 Est GFR (MDRD) Af Amer 98 Est GFR (MDRD) Non-Af 81 BUN/Creatinine Ratio 18.3 Glucose 97 Lactic Acid 3.4 H Calcium 9.2 Total Bilirubin 3.30 H Direct Bilirubin 2.58 H AST 90 H ALT 72 H Alkaline Phosphatase 315 H Total Protein 7.4 Albumin 3.1 L Globulin 4.3 H Albumin/Globulin Ratio Lipase 452 H 03/02/18 03/02/18 03/02/18 02:25 05:23 05:23 WBC 6.9 RBC 4.02 L Hgb 13.1 Hct 38.9 L MCV 96.8 H MCH 32.6 H MCHC 33.7 RDW 15.7 H RDW Differential 53.9 H Plt Count 249 MPV 11.3 Immature Gran % (Auto) 0.300 Neut % (Auto) 79.8 H Lymph % (Auto) 7.8 L [place] % (Auto) 10.6 H Eos % (Auto) 1.2 Baso % (Auto) 0.3 Absolute Neuts (auto) 5.5 Absolute Lymphs (auto) 0.54 L Total Counted Not Reportable Sodium 138 Potassium 4.1 Chloride 105 Carbon Dioxide 23.0 Anion Gap 10 BUN 15 Creatinine 0.86 Estim Creat Clear Calc 86.97 Est GFR (MDRD) Af Amer 114 Est GFR (MDRD) Non-Af 94 BUN/Creatinine Ratio 17.4 Glucose 81 Lactic Acid 2.1 H Calcium 8.4 L Total Bilirubin 3.20 H Direct Bilirubin AST 74 H ALT 61 Alkaline Phosphatase 259 H Total Protein 6.2 L Albumin 2.6 L Globulin 3.6 Albumin/Globulin Ratio 0.7 L Lipase 03/02/18 05:23 WBC RBC Hgb Hct MCV MCH MCHC RDW RDW Differential Plt Count MPV Immature Gran % (Auto) Neut % (Auto) Lymph % (Auto) [place] % (Auto) Eos % (Auto) Baso % (Auto) Absolute Neuts (auto) Absolute Lymphs (auto) Total Counted Sodium Potassium Chloride Carbon Dioxide Anion Gap BUN Creatinine Estim Creat Clear Calc Est GFR (MDRD) Af Amer Est GFR (MDRD) Non-Af BUN/Creatinine Ratio Glucose Lactic Acid 1.9 Calcium Total Bilirubin Direct Bilirubin AST ALT Alkaline Phosphatase Total Protein Albumin Globulin Albumin/Globulin Ratio Lipase ASSESSMENT/PLAN: 1) Right hilar mass and liver masses. Assessment: -KPS is 70%. -In summary the patient is a 67-year-old male who is a 54-[id number]-[id number] history of smoking. He presented with a several month history of worsening right upper quadrant pain, increasing dyspnea on exertion, significant weight loss and radiographic evidence concerning for metastatic malignancy. -Clinical picture consistent with metastatic lung cancer. Given the widespread disease in the liver, concern for small cell. Plan: -I discussed with the patient and his the approach to diagnosis and staging workup. -Explained that treatment plan would be based on final diagnosis and his performance status. -Agree biopsy of liver lesion for diagnosis. -Will need MRI brain to complete staging. PET not necessary based on CT findings. -Check LDH.
--- NOTE | 2018-03-02 09:28 | MRI_ITS ---
STUDY: MRI BRAIN WITH AND WITHOUT CONTRAST REASON FOR EXAM: Male, 67 years old. Lung cancer TECHNIQUE: Standardized multiplanar fat and water weighted pulse sequences were obtained. 7 ml of Gadavist contrast material was administered intravenously for the contrast portion of the examination. COMPARISON: None. FINDINGS: Normal size of the ventricles and extra-axial spaces for the patient's age. Normal white matter tracts of the supratentorial brain. Normal bilateral basal ganglia. Normal thalami. There is no extra-axial fluid accumulation. Normal flow voids within the major intracranial circulation suggesting patency by spin echo criteria. Normal venous enhancement. There is no enhancing intra-axial or extra-axial abnormality. Normal sella turcica, pituitary gland, infundibular stalk, optic chiasm and hypothalamus. Normal tectal plate and pineal gland. Normal midbrain, malcolm and medulla. Normal cerebellum. Normal basal cisterns. Normal bilateral temporal bones. Normal bilateral internal auditory canals. No demonstrated orbital abnormality, within the constraints of a routine brain study. Air-fluid levels within the sphenoid sinus. Fluid signal in mastoid air cells bilaterally. Normal calvarium and skull base. Normal visualized soft tissue structures. Normal visualized upper cervical spine. IMPRESSION: Sphenoid sinusitis and bilateral mastoid effusions otherwise Normal unenhanced and enhanced MRI of the brain. Electronically Signed: Soy Burns MD at 17:31 EST , Service support , MRI/Brain W/WO Contrast
[2018-03-02 10:37] LABS: LDH 658 U/L (87-241)
--- NOTE | 2018-03-02 11:49 | DCINST_ITS ---
- Discharge Diagnoses Current Active Problems: Current Active and Chronic Problems Lung mass (Acute) Mass of middle lobe of right lung (Acute) Liver masses (Acute) You will use the following diet at home:: No restrictions Your food should be the consistency of: Regular Allergies/Adverse Reactions: Allergies Penicillins [PCN] Adverse Reaction (Verified 03/01/18 19:33) Other Medications to take at Discharge NK 03/01/18 Primary Care Physician: Care Physician,No Primary [Primary Care Provider] - Test Results: Test results from this visit will be discussed in further detail at your follow- up appointment, if applicable. Please Follow Up With: Yvon Melgoza DO When: 1 week Please Follow Up With: Maxime Moctezuma DO When: 1 week Proposed Discharge Date: 03/02/18
--- NOTE | 2018-03-02 11:49 | PCM.DC.SUM ---
Discharge Date and Diagnosis - Problem List Patient Problems: Active and Suspected Problems Lung mass (Acute) Mass of middle lobe of right lung (Acute) Liver masses (Acute) Lactic acidosis (Acute) Date of Admission: 03/02/18 Date of Discharge: 03/02/18 - Primary Discharge Diagnosis Active and Suspected Problems Lung mass (Acute) Mass of middle lobe of right lung (Acute) Liver masses (Acute) Hospital Course and Treatment Imaging Results: 03/02/18 09:28 MRI Brain [Brain W/WO Contrast] [MRI] Stat Clinical Impression(s) from Imaging Studies Abdomen/Pelvis CT 03/01/18 19:53 IMPRESSION: There are small subcentimeter right pulmonary nodular densities. Pericardial effusion. Hepatomegaly with innumerable metastatic hepatic lesions. Mild pelvic free fluid. Retrocrural adenopathy. Nodule posterior to the spleen may be related to additional enlarged node. Electronically Signed: Sid Oneil DO at 22:31 EST Tel [phone], Service support , Chest X-Ray 03/01/18 20:43 IMPRESSION: Right upper lung nodular density and right hilar prominence. Correlation with CT is recommended. Focal right perihilar and infrahilar infiltrates. Electronically Signed: Sid Oneil DO at 21:26 EST Tel [phone], Service support , Gallbladder Ultrasound 03/01/18 22:53 IMPRESSION: Multiple metastatic lesions in the liver Electronically Signed: Janee Srivastava MD at 23:59 EST Tel , Service support , Chest CT 03/02/18 00:23 IMPRESSION: Multiple pleural nodules are seen in the lower part of the right hemithorax most likely represent metastatic lesions the largest measures approximately 2.8 x 1.2 cm. There is right hilar mass measures approximately 5.5 cm in diameter consistent with a neoplastic process. Innumerable metastatic lesions are seen in the liver, the largest measures approximately 8 cm in diameter. Electronically Signed: Janee Srivastava MD at 1:59 EST Tel , Service support , Yvon Melgoza, DO Maxime Moctezuma, DO Operations: None Procedures: None Summary of Care Provided: The patient is a 67 year old M presents with abdominal pain. Patient had abdominal CAT scan that showed some small subcentimeter right pulmonary nodules, pericardial effusion, hepatomegaly with innumerable metastatic hepatic lesions. Patient was subsequently admitted for further cancer evaluation. Patient was evaluated by neurology at as well as medical oncology. Patient had a chest CT that showed multiple pleural nodules seen in the lower part of the right hemithorax likely representing metastatic lesions with largest measuring 2.8 x 1.2 cm. A large right hilar mass of 5.7 cm in diameter. And numerous metastatic lesions within the liver with the largest measuring 8 cm. This was discussed extensively with the patient and the concern is obviously for cancer. Plan is for the patient have an outpatient biopsy particular of the liver. Patient will have part of his screening MRIs performed while he is here in the which will be followed up by Dr. Melgoza. Patient is otherwise feeling well. Does have some early satiety and some abdominal pain which is likely related with hepatomegaly in the hepatic metastasis. Patient is currently in agreement with plan to get MRI done and then to follow-up with the corresponding specialist. [] Patient Problems: Active and Suspected Problems Lung mass (Acute) Mass of middle lobe of right lung (Acute) Liver masses (Acute) Lactic acidosis (Acute) - Physical Exam General: Alert, No apparent distress HEENT: Atraumatic, Normocephalic Oral: Moist Mucosa, No Gingival or Mucosal Lesions/ Ulcerations Abdomen: Soft, Hepatomegaly, Tender Extremities: No clubbing, No edema Vital Signs Temp Pulse Resp BP Pulse Ox 36.8 C 112 H 18 131/83 H 94 03/02/18 06:05 03/02/18 11:00 03/02/18 06:05 03/02/18 06:05 03/02/18 07:49 Oxygen Delivery Method Room Air Weight: 71.8 kg Body Mass Index (BMI) 21.4 Intake and Output for Last 24 Hours 02/28/18 03/01/18 03/02/18 23:59 23:59 23:59 Intake Total 583 / 583 Balance 583 / 583 Laboratory Tests Past 24 Hrs 03/01/18 03/01/18 03/01/18 20:30 20:30 20:30 WBC 7.8 RBC 4.55 L Hgb 14.9 Hct 43.8 MCV 96.3 H MCH 32.7 H MCHC 34.0 RDW 15.8 H RDW Differential 54.5 H Plt Count 303 MPV 11.5 Immature Gran % (Auto) 0.300 Neut % (Auto) 80.8 H Lymph % (Auto) 8.4 L [place] % (Auto) 9.8 Eos % (Auto) 0.3 Baso % (Auto) 0.4 Absolute Neuts (auto) 6.3 Absolute Lymphs (auto) 0.65 L Total Counted Not Reportable Sodium 136 Potassium 3.9 Chloride 102 Carbon Dioxide 22.0 Anion Gap 12 BUN 18 Creatinine 0.99 Estim Creat Clear Calc 77.34 Est GFR (MDRD) Af Amer 98 Est GFR (MDRD) Non-Af 81 BUN/Creatinine Ratio 18.3 Glucose 97 Lactic Acid 3.4 H Calcium 9.2 Total Bilirubin 3.30 H Direct Bilirubin 2.58 H AST 90 H ALT 72 H Alkaline Phosphatase 315 H Lactate Dehydrogenase Total Protein 7.4 Albumin 3.1 L Globulin 4.3 H Albumin/Globulin Ratio Lipase 452 H 03/02/18 03/02/18 03/02/18 02:25 05:23 05:23 WBC 6.9 RBC 4.02 L Hgb 13.1 Hct 38.9 L MCV 96.8 H MCH 32.6 H MCHC 33.7 RDW 15.7 H RDW Differential 53.9 H Plt Count 249 MPV 11.3 Immature Gran % (Auto) 0.300 Neut % (Auto) 79.8 H Lymph % (Auto) 7.8 L [place] % (Auto) 10.6 H Eos % (Auto) 1.2 Baso % (Auto) 0.3 Absolute Neuts (auto) 5.5 Absolute Lymphs (auto) 0.54 L Total Counted Not Reportable Sodium 138 Potassium 4.1 Chloride 105 Carbon Dioxide 23.0 Anion Gap 10 BUN 15 Creatinine 0.86 Estim Creat Clear Calc 86.97 Est GFR (MDRD) Af Amer 114 Est GFR (MDRD) Non-Af 94 BUN/Creatinine Ratio 17.4 Glucose 81 Lactic Acid 2.1 H Calcium 8.4 L Total Bilirubin 3.20 H Direct Bilirubin AST 74 H ALT 61 Alkaline Phosphatase 259 H Lactate Dehydrogenase Total Protein 6.2 L Albumin 2.6 L Globulin 3.6 Albumin/Globulin Ratio 0.7 L Lipase 03/02/18 03/02/18 05:23 05:28 WBC RBC Hgb Hct MCV MCH MCHC RDW RDW Differential Plt Count MPV Immature Gran % (Auto) Neut % (Auto) Lymph % (Auto) [place] % (Auto) Eos % (Auto) Baso % (Auto) Absolute Neuts (auto) Absolute Lymphs (auto) Total Counted Sodium Potassium Chloride Carbon Dioxide Anion Gap BUN Creatinine Estim Creat Clear Calc Est GFR (MDRD) Af Amer Est GFR (MDRD) Non-Af BUN/Creatinine Ratio Glucose Lactic Acid 1.9 Calcium Total Bilirubin Direct Bilirubin AST ALT Alkaline Phosphatase Lactate Dehydrogenase 658 H Total Protein Albumin Globulin Albumin/Globulin Ratio Lipase Discharge Diet: No Restrictions Home Medications: Medications to take at Discharge NK 03/01/18 Primary Care Physician: Care Physician,No Primary [Primary Care Provider] - Please Follow Up With: Yvon Melgoza DO When: 1 week Please Follow Up With: Maxime Moctezuma DO When: 1 week Disposition: Home Minutes spent on discharge:: 28 Patient Condition:: Good Medical Necessity - Tobacco Use Smoking Status: Former smoker Tobacco Use: Cigarettes Meaningful Use Info Meaningful Use Diagnoses (Choose all that apply): None applicable Code Visit OBSV E&M: 29431 Observation care discharge
--- NOTE | 2018-03-02 11:53 | DS.PCM_ITS ---
Discharge Date and Diagnosis - Problem List Patient Problems: Active and Suspected Problems Lung mass (Acute) Mass of middle lobe of right lung (Acute) Liver masses (Acute) Lactic acidosis (Acute) Date of Admission: 03/02/18 Date of Discharge: 03/02/18 - Primary Discharge Diagnosis Active and Suspected Problems Lung mass (Acute) Mass of middle lobe of right lung (Acute) Liver masses (Acute) Hospital Course and Treatment Imaging Results: 03/02/18 09:28 MRI Brain [Brain W/WO Contrast] [MRI] Stat Clinical Impression(s) from Imaging Studies Abdomen/Pelvis CT 03/01/18 19:53 IMPRESSION: There are small subcentimeter right pulmonary nodular densities. Pericardial effusion. Hepatomegaly with innumerable metastatic hepatic lesions. Mild pelvic free fluid. Retrocrural adenopathy. Nodule posterior to the spleen may be related to additional enlarged node. Electronically Signed: Sid Oneil DO at 22:31 EST Tel [phone], Service support , Chest X-Ray 03/01/18 20:43 IMPRESSION: Right upper lung nodular density and right hilar prominence. Correlation with CT is recommended. Focal right perihilar and infrahilar infiltrates. Electronically Signed: Sid Oneil DO at 21:26 EST Tel [phone], Service support , Gallbladder Ultrasound 03/01/18 22:53 IMPRESSION: Multiple metastatic lesions in the liver Electronically Signed: Janee Srivastava MD at 23:59 EST Tel , Service support , Chest CT 03/02/18 00:23 IMPRESSION: Multiple pleural nodules are seen in the lower part of the right hemithorax most likely represent metastatic lesions the largest measures approximately 2.8 x 1.2 cm. There is right hilar mass measures approximately 5.5 cm in diameter consistent with a neoplastic process. Innumerable metastatic lesions are seen in the liver, the largest measures approximately 8 cm in diameter. Electronically Signed: Janee Srivastava MD at 1:59 EST Tel , Service support , Yvon Melgoza, DO Maxime Moctezuma, DO Operations: None Procedures: None Summary of Care Provided: The patient is a 67 year old M presents with abdominal pain. Patient had abdominal CAT scan that showed some small subcentimeter right pulmonary nodules, pericardial effusion, hepatomegaly with innumerable metastatic hepatic lesions. Patient was subsequently admitted for further cancer evaluation. Patient was evaluated by neurology at as well as medical oncology. Patient had a chest CT that showed multiple pleural nodules seen in the lower part of the right hemithorax likely representing metastatic lesions with largest measuring 2.8 x 1.2 cm. A large right hilar mass of 5.7 cm in diameter. And numerous metastatic lesions within the liver with the largest measuring 8 cm. This was discussed extensively with the patient and the concern is obviously for cancer. Plan is for the patient have an outpatient biopsy particular of the liver. Patient will have part of his screening MRIs performed while he is here in the which will be followed up by Dr. Melgoza. Patient is otherwise feeling well. Does have some early satiety and some abdominal pain which is likely related with hepatomegaly in the hepatic metastasis. Patient is currently in agreement with plan to get MRI done and then to follow-up with the corresponding specialist. [] Patient Problems: Active and Suspected Problems Lung mass (Acute) Mass of middle lobe of right lung (Acute) Liver masses (Acute) Lactic acidosis (Acute) - Physical Exam General: Alert, No apparent distress HEENT: Atraumatic, Normocephalic Oral: Moist Mucosa, No Gingival or Mucosal Lesions/ Ulcerations Abdomen: Soft, Hepatomegaly, Tender Extremities: No clubbing, No edema Vital Signs Temp Pulse Resp BP Pulse Ox 36.8 C 112 H 18 131/83 H 94 03/02/18 06:05 03/02/18 11:00 03/02/18 06:05 03/02/18 06:05 03/02/18 07:49 Oxygen Delivery Method Room Air Weight: 71.8 kg Body Mass Index (BMI) 21.4 Intake and Output for Last 24 Hours 02/28/18 03/01/18 03/02/18 23:59 23:59 23:59 Intake Total 583 / 583 Balance 583 / 583 Laboratory Tests Past 24 Hrs 03/01/18 03/01/18 03/01/18 20:30 20:30 20:30 WBC 7.8 RBC 4.55 L Hgb 14.9 Hct 43.8 MCV 96.3 H MCH 32.7 H MCHC 34.0 RDW 15.8 H RDW Differential 54.5 H Plt Count 303 MPV 11.5 Immature Gran % (Auto) 0.300 Neut % (Auto) 80.8 H Lymph % (Auto) 8.4 L [place] % (Auto) 9.8 Eos % (Auto) 0.3 Baso % (Auto) 0.4 Absolute Neuts (auto) 6.3 Absolute Lymphs (auto) 0.65 L Total Counted Not Reportable Sodium 136 Potassium 3.9 Chloride 102 Carbon Dioxide 22.0 Anion Gap 12 BUN 18 Creatinine 0.99 Estim Creat Clear Calc 77.34 Est GFR (MDRD) Af Amer 98 Est GFR (MDRD) Non-Af 81 BUN/Creatinine Ratio 18.3 Glucose 97 Lactic Acid 3.4 H Calcium 9.2 Total Bilirubin 3.30 H Direct Bilirubin 2.58 H AST 90 H ALT 72 H Alkaline Phosphatase 315 H Lactate Dehydrogenase Total Protein 7.4 Albumin 3.1 L Globulin 4.3 H Albumin/Globulin Ratio Lipase 452 H 03/02/18 03/02/18 03/02/18 02:25 05:23 05:23 WBC 6.9 RBC 4.02 L Hgb 13.1 Hct 38.9 L MCV 96.8 H MCH 32.6 H MCHC 33.7 RDW 15.7 H RDW Differential 53.9 H Plt Count 249 MPV 11.3 Immature Gran % (Auto) 0.300 Neut % (Auto) 79.8 H Lymph % (Auto) 7.8 L [place] % (Auto) 10.6 H Eos % (Auto) 1.2 Baso % (Auto) 0.3 Absolute Neuts (auto) 5.5 Absolute Lymphs (auto) 0.54 L Total Counted Not Reportable Sodium 138 Potassium 4.1 Chloride 105 Carbon Dioxide 23.0 Anion Gap 10 BUN 15 Creatinine 0.86 Estim Creat Clear Calc 86.97 Est GFR (MDRD) Af Amer 114 Est GFR (MDRD) Non-Af 94 BUN/Creatinine Ratio 17.4 Glucose 81 Lactic Acid 2.1 H Calcium 8.4 L Total Bilirubin 3.20 H Direct Bilirubin AST 74 H ALT 61 Alkaline Phosphatase 259 H Lactate Dehydrogenase Total Protein 6.2 L Albumin 2.6 L Globulin 3.6 Albumin/Globulin Ratio 0.7 L Lipase 03/02/18 03/02/18 05:23 05:28 WBC RBC Hgb Hct MCV MCH MCHC RDW RDW Differential Plt Count MPV Immature Gran % (Auto) Neut % (Auto) Lymph % (Auto) [place] % (Auto) Eos % (Auto) Baso % (Auto) Absolute Neuts (auto) Absolute Lymphs (auto) Total Counted Sodium Potassium Chloride Carbon Dioxide Anion Gap BUN Creatinine Estim Creat Clear Calc Est GFR (MDRD) Af Amer Est GFR (MDRD) Non-Af BUN/Creatinine Ratio Glucose Lactic Acid 1.9 Calcium Total Bilirubin Direct Bilirubin AST ALT Alkaline Phosphatase Lactate Dehydrogenase 658 H Total Protein Albumin Globulin Albumin/Globulin Ratio Lipase Discharge Diet: No Restrictions Home Medications: Medications to take at Discharge NK 03/01/18 Primary Care Physician: Care Physician,No Primary [Primary Care Provider] - Please Follow Up With: Yvon Melgoza DO When: 1 week Please Follow Up With: Maxime Moctezuma DO When: 1 week Disposition: Home Minutes spent on discharge:: 28 Patient Condition:: Good Medical Necessity - Tobacco Use Smoking Status: Former smoker Tobacco Use: Cigarettes Meaningful Use Info Meaningful Use Diagnoses (Choose all that apply): None applicable Code Visit OBSV E&M: 76831 Observation care discharge
== END 2018-03-02 11:48 | disposition home or self-care (01) ==
LOC: ED 20:22 → PCU 03-02 00:41
PROVIDERS: Internal Medicine Hematology & Oncology; Admitting Provider Student in an Organized Health Care Education/Training Program; Emergency Provider Emergency Medicine
DX: R91.8 Other nonspecific abnormal finding of lung field (principal); E87.2 Acidosis; Z87.891 Personal history of nicotine dependence; C78.7 Secondary malignant neoplasm of liver and intrahepatic bile duct; R79.89 Other specified abnormal findings of blood chemistry
CPT/HCPCS: 36415; 70553; 71045; 71250; 74177; 76705; 80048; 80053; 80076; 83605; 83615; 83690; 85025; 87040; 93005; 96361; 96365; 96366; 96375; 97802; 99218; 99283; 99406; A9585; J7030; Q9967; A4216; G0378; J2405

== ENCOUNTER → 2018-03-07 10:40 | Outpatient (CLI) | payer BC, SELFPAY ==
[2018-03-02 01:24] VITALS: BMI 21.4
[2018-03-07 10:54] LABS: Prothrombin Time (Protime)PT. 12.7 SECONDS (11.7-14.9)
[2018-03-07 10:55] LABS: Partial Thromboplast Time 30.8 Seconds (24.1-36.2)
== END ==
PROVIDERS: Referring Provider Internal Medicine Hematology & Oncology; Visit Provider Internal Medicine Hematology & Oncology
DX: C78.7 Secondary malignant neoplasm of liver and intrahepatic bile duct (principal)
CPT/HCPCS: 85610; 85730

== ENCOUNTER → 2018-03-08 09:22 | Outpatient (CLI) | payer BC, SELFPAY ==
[2018-03-07 11:08] VITALS: BMI 21.5
--- NOTE | 2018-03-08 | LIVB_PTH ---
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 AM:marina 03/11/18 COMMENT Immunohistochemistry ([id number]) supports the above diagnosis. TTF-1 positivity favors a lung primary. Clinical correlation is suggested. Please see corresponding cytology [id number]). Case has been reviewed in consultation with Dr. Andrade who concurs with the above diagnosis. IDC:SJ MICROSCOPIC DESCRIPTION Slides are reviewed. GROSS DESCRIPTION Received is one container labeled with the patient's name and not further designated. The specimen consists of two elongated cores of light lim soft tissue. Each core measures 1.2 cm in average length and <0.1 cm in greatest diameter. The specimen is submitted in its entirety in one cassette. / AM:marina 03/08/18 TC:0 CPT: 26136, 90120, 55779
--- NOTE | 2018-03-08 | ASPIG_PTH ---
PATIENT: CORRY BIGGS LOC: U#:[id number] AGE/SX: 74/M ROOM: RE03/08/[address]: LUIS Menard : 1950 BED: DIS: SPEC #: [id number] RECD: 03/08/18 14:21 STATUS: LEON CHRIS #: [id number] ROBERT: 03/08/18 00:[address]: Norma Nicole NP DEPT: CYTOLOGY RECD BY: Hussein Melo ENTERED: 03/08/18 14:22 SP TYPE: ASP OUT OTHR DR: No Primary Care Phys Tissues: A - Liver, NOS Procedures: FNA Specimen Adequacy Pap Stain (control) Special Stain Group II Surgery Specimen Level IV Diff Quik Stain (control) Cell Block Cytology Other HEADER OPERATION: Ultrasound-guided liver FNA/biopsy PRE-OP DIAGNOSIS: Liver mass TISSUE SUBMITTED: Liver DIAGNOSIS CYTOLOGY CT-guided fine needle aspiration, liver mass (smears and cell block): Positive for malignant cells consistent with metastatic small cell neuroendocrine carcinoma. AM:marina 03/11/18 COMMENT The specimen is evaluated at the time of CT by Dr. Carmichael. Immediate Evaluation = Positive for malignant cells, favor small cell carcinoma. Please see corresponding case of liver mass core biopsy, [id number] with similar findings and accompanying immunohistochemistry supporting the diagnosis.. Case has been reviewed in consultation with Dr. Andrade who concurs with the above diagnosis. IDC:SJ CYTOLOGY STUDY Slides are reviewed. CYTOLOGY GROSS Received is 0.2 ml of reddish fluid labeled with the patient's name, and designated liver. Seven imprints and three paps are made from the submitted fluid and the rest is added to CytoLyt for cell block preparation. Submitted for cytology study. / AM:marina 03/08/18 TC:0 CPT: 89644, 99716, 17946
--- NOTE | 2018-03-08 | IMM_PTH ---
PATIENT: CORRY BIGGS LOC: U#:[id number] AGE/SX: 74/M ROOM: RE03/08/[address]: LUIS Menard : 1950 BED: DIS: SPEC #: [id number] RECD: 03/13/18 07:34 STATUS: LEON REQ #: [id number] ROBERT: 03/08/18 00:[address]: Norma Nicole NP DEPT: IMMUNOHISTOCHEMISTRY RECD BY: Lillie Calderon ENTERED: 03/13/18 07:36 SP TYPE: IMMUNO OTHR DR: No Primary Care Phys Tissues: Liver, NOS Procedures: Synapto (add) NAPSIN A (add) CD56 (add) CEA (add) CHROMO (add) CK20 (add) CK7 (add) CK8 (add) KI-67 (add) TTF1 (add) Pankeratin (initial) NSE (add) PHYSICIAN & INSTITUTION [address] [address] SPECIMEN INFORMATION: Tissue Source: Liver Clinical Info: Liver mass Specimen Number: [id number] CPT code: 37582, 24676 x11 METHODOLOGY: Deparaffinized sections of prefer/formalin-fixed tissue or PAP/DQ stained slides are incubated with monoclonal/polyclonal antibodies/oligonucleotide probes. Localization is made via biotin free immunoperoxidase method. Appropriate controls are performed and reacted as expected. Results on target cell population are indicated in the following table: RESULTS: ANTIBODY / CLONE RESULT AE1-3 (AE1/AE3/PCK26) positive CK7 (OV-TL12/30) negative CK8 (41knpsJ84) positive CK20 (KS20.8) negative Napsin A (Rabbit Polyclonal) negative Synapto (polyclonal) positive NSE Neuron Specific Enolase positive CD56 (123C3.D5) positive, focal Chromo (LK2H10) positive Ki-67 (30-9) positive, >95% CEA (11-7/TF-3HB-1) positive TTF-1 (8G7G3/1) positive These tests were developed and their performance characteristics determined by [facility]. They may not have been cleared or approved by the [place]. Food and Drug Administration. The FDA has determined that such clearance or approval is not necessary. 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 Comment: A lung primary is favored. Clinical correlation is suggested. Case has been reviewed in consultation with Dr. Andrade who concurs with the above diagnosis. IDC:TITA AM:marina 03/13/18
--- NOTE | 2018-03-08 09:25 | US_ITS ---
PROCEDURE: Ultrasound Guided CLINICAL HISTORY: Male, 67 years old. CONSENT: Time-Out Called: Yes Consent form signed: YES PT-PTT Levels Checked: Yes SEDATION: TECHNIQUE: FINDINGS: The procedure was explained to the patient. Under ultrasound guidance and following appropriate aseptic preparation and minor sedation with local anesthesia: FNA was performed using 22-gauge Franseen needle and 2 cores were obtained using 18-gauge adalberto-cut needle the specimens were processed readily by laborer construction or leak gang and kindly the pathologist kindly came down and informed us that the specimen is sufficient for diagnosis. US/Liver Biopsy Ultrasound IMPRESSION: Successful FNA and biopsy of the left lobe of the liver lesion. Electronically Signed: Herbert Sow, at 16:01 EST Tel , Service support ,
[2018-03-08 09:32] VITALS: BP 120/85; PULSE 117; RESP 16; O2SAT 96; BMI 21.5
[2018-03-08 10:40] VITALS: BP 128/91; PULSE 120; RESP 18; O2SAT 96
[2018-03-08 10:45] VITALS: BP 127/86; BP 133/93; PULSE 110; RESP 18; O2SAT 96
[2018-03-08 11:05] VITALS: BP 119/88; PULSE 110; RESP 18; O2SAT 96
[2018-03-08 11:20] VITALS: BP 125/86; PULSE 112; RESP 18; O2SAT 92
[2018-03-08 11:50] VITALS: BP 133/90; PULSE 112; RESP 18; O2SAT 92
== END ==
PROVIDERS: Referring Provider Nurse Practitioner Acute Care; Visit Provider Nurse Practitioner Acute Care
DX: R16.0 Hepatomegaly, not elsewhere classified (principal)
CPT/HCPCS: 10022; 47000; 76942; 88161; 88172; 88305; 88307; 88313; 88341; 88342